=== PATIENT | female | born 1930 | race Caucasian/White ===

== ENCOUNTER → 2016-10-25 | Outpatient (CLI) | payer OTHER ==
[~2016-10-25] MED LIST: AMLODIPINE BESYL5 MG PO; CEFDINIR300 MG PO; FLORASTOR250 MG PO; FOSINOPRIL SODI40 MG PO; HYDROCHLOROTHIA25 MG PO; METOPROLOL TAR100 MG PO; TAMOXIFEN CITRA20 MG PO; TUMS500 MG PO; VITAMIN D31000 UNI2 PO
== END | disposition home or self-care (01) ==
LOC: CDC 11:15
DX: M65.342 Trigger finger, left ring finger (principal); M79.642 Pain in left hand
CPT/HCPCS: 93000

== ENCOUNTER 2016-11-19 17:17 | Inpatient (IN) | payer OTHER ==
[~2016-11-19] VITALS: Ht 165.1 cm; Wt 70.7 kg
[2016-11-19 17:48] LABS: EOSINOPHIL (%) 1.5 % (0-5); EOSINOPHIL COUNT 0.2 K/uL (0-0.3); HEMATOCRIT 28.9 % (36.0-46.0); IMMATURE GRANULOCYTE (%) 0.8 % (0.0-0.7); IMMATURE GRANULOCYTE COUNT 0.1 K/uL; INSTRUMENT ABS NEUTROPHIL CT 6.8 K/uL; LYMPHOCYTE COUNT 2.7 K/uL (1.0-2.8); MCH 31.8 PG (29.0-34.0); MCHC 33.6 G/DL (30.0-36.0); MEAN PLAT.VOLUME 9.6 uM^3 (9.5-12.4); MONOCYTE (%) 8.7 % (3-12); MONOCYTE COUNT 0.9 K/uL (0-0.8); NEUTROPHIL (%) 63.7 % (45-76); NEUTROPHIL COUNT 6.8 K/uL (1.8-6.4); PLATELET COUNT 281 K/uL (156-360); RBC DIS.WIDTH-CV 12.3 % (11.8-14.6); RBC DIS.WIDTH-SD 42.9 % (39-53); RED BLOOD COUNT 3.05 M/uL (3.80-5.20); WHITE BLOOD COUNT 10.7 K/uL (4.1-10.2)
[2016-11-19 17:49] LABS: MCV 94.8 FL (83-99)
[2016-11-19 17:57] LABS: CHLORIDE 94 mEq/L (99-109); POTASSIUM 3.9 mEq/L (3.7-5.4); SODIUM 127 mEq/L (136-147)
[2016-11-19 17:59] LABS: GLUCOSE 134 mg/dL (70-99)
[2016-11-19 18:00] LABS: ANION GAP 12 MEQ/L (2-14)
[2016-11-19 18:03] LABS: GFR ESTIMATE (CALCULATED) 27 mL/min/
[2016-11-19 18:04] LABS: UREA NITROGEN (BUN) 45 mg/dL (9-23)
[2016-11-19] MEDS ORDERED: FLEXERIL10 MG PO (20:00)
[2016-11-19] MEDS ORDERED: HYDROCODON-ACE1 EAC7 PO (20:00)
[2016-11-19] MEDS ORDERED: HYDROCHLOROTHIA25 MG PO (20:00)
[2016-11-19] MEDS ORDERED: SENNA PLUS TAB1 EACH PO (20:00)
[2016-11-19 20:11] LABS: ADD MIUA? YES; BILIRUBIN NEGATIVE; BLOOD SMALL; COLOR YELLOW ((YELLOW)); GLUCOSE (STRIP) NEGATIVE; KETONES NEGATIVE; LEUKOCYTES MODERATE; NITRITE POSITIVE; PROTEIN (STRIP) NEGATIVE; SPECIFIC GRAVITY 1.008 (1.000-1.030); UROBILINOGEN 0.2 MG/DL (0.2-1.0)
[2016-11-19 20:17] LABS: BACTERIA RARE /HPF; EPITHELIAL CELLS 1+ /HPF; MUCUS TRACE /LPF; RED BLOOD CELLS 0-5 /HPF (0-5); WHITE BLOOD CELLS 20-30 /HPF (0-5)
[2016-11-19 21:38] VITALS: BP 182/74
[2016-11-20 00:13] VITALS: BP 117/56
[2016-11-20 05:45] VITALS: BP 172/74
[2016-11-20 06:43] LABS: HEMATOCRIT 33.3 % (36.0-46.0); MCHC 33.9 G/DL (30.0-36.0); MCV 97.4 FL (83-99); MEAN PLAT.VOLUME 10.1 uM^3 (9.5-12.4); PLATELET COUNT 317 K/uL (156-360); RBC DIS.WIDTH-CV 12.5 % (11.8-14.6); RBC DIS.WIDTH-SD 44.7 % (39-53); RED BLOOD COUNT 3.42 M/uL (3.80-5.20); WHITE BLOOD COUNT 15.5 K/uL (4.1-10.2)
[2016-11-20 07:15] LABS: ANION GAP 10 MEQ/L (2-14); CHLORIDE 101 MEQ/L (99-109); GFR ESTIMATE (CALCULATED) 33 mL/min/; GLUCOSE 103 mg/dL (70-99); POTASSIUM 3.9 MEQ/L (3.7-5.4); SAMPLE HEMOLYSIS CHECK 1; SAMPLE ICTERIC CHECK 0; SAMPLE LIPEMIA CHECK 0; UREA NITROGEN (BUN) 36 mg/dL (9-23)
[2016-11-20 07:16] LABS: SODIUM 135 MEQ/L (136-147)
[2016-11-20 11:01] VITALS: BP 141/79
[2016-11-20 13:00] LABS: C DIFF TOXIN NEGATIVE (NEGATIVE)
[2016-11-20 13:13] LABS: PROBE CHECK PASS; SPECIMEN PROCESSING CONTROL PASS
[2016-11-20 16:10] VITALS: BP 134/62
[2016-11-20 20:34] VITALS: BP 140/66
[2016-11-21 06:20] LABS: EOSINOPHIL (%) 0.4 % (0-5); EOSINOPHIL COUNT 0.1 K/uL (0-0.3); HEMATOCRIT 32.1 % (36.0-46.0); IMMATURE GRANULOCYTE COUNT 0.2 K/uL; INSTRUMENT ABS NEUTROPHIL CT 11.5 K/uL; LYMPHOCYTE COUNT 2.6 K/uL (1.0-2.8); MCH 32.3 PG (29.0-34.0); MCHC 33.3 G/DL (30.0-36.0); MEAN PLAT.VOLUME 9.7 uM^3 (9.5-12.4); MONOCYTE (%) 7.4 % (3-12); MONOCYTE COUNT 1.2 K/uL (0-0.8); NEUTROPHIL (%) 74.2 % (45-76); NEUTROPHIL COUNT 11.5 K/uL (1.8-6.4); PLATELET COUNT 250 K/uL (156-360); RBC DIS.WIDTH-CV 12.4 % (11.8-14.6); RBC DIS.WIDTH-SD 44.7 % (39-53); RED BLOOD COUNT 3.31 M/uL (3.80-5.20); WHITE BLOOD COUNT 15.6 K/uL (4.1-10.2)
[2016-11-21 06:58] LABS: ANION GAP 15 MEQ/L (2-14); CHLORIDE 102 MEQ/L (99-109); GFR ESTIMATE (CALCULATED) 25 mL/min/; GLUCOSE 108 mg/dL (70-99); POTASSIUM 3.4 MEQ/L (3.7-5.4); SAMPLE HEMOLYSIS CHECK 0; SAMPLE ICTERIC CHECK 0; SAMPLE LIPEMIA CHECK 0; SODIUM 135 MEQ/L (136-147); UREA NITROGEN (BUN) 44 mg/dL (9-23)
[2016-11-21 08:42] VITALS: BP 169/73
[2016-11-21 13:42] LABS: ADD MIUA? YES; BILIRUBIN NEGATIVE; BLOOD MODERATE; COLOR YELLOW ((YELLOW)); GLUCOSE (STRIP) NEGATIVE; KETONES NEGATIVE; LEUKOCYTES LARGE; NITRITE NEGATIVE; PROTEIN (STRIP) 30; UROBILINOGEN 0.2 MG/DL (0.2-1.0)
[2016-11-21 14:06] LABS: BACTERIA RARE /HPF; CALCIUM OXALATE CRYSTALS 1+ /HPF; EPITHELIAL CELLS NONE SEEN /HPF; MUCUS NONE SEEN /LPF; RED BLOOD CELLS 0-5 /HPF (0-5); UCUL ADDED? YES; WHITE BLOOD CELLS TNTC /HPF (0-5); WHITE BLOOD CELLS CLUMP FEW /HPF (0-5)
[2016-11-21 16:02] VITALS: BP 137/61
[2016-11-21 19:55] VITALS: BP 182/81
[2016-11-21 23:31] VITALS: BP 149/65
[2016-11-22 06:57] LABS: EOSINOPHIL COUNT 0.1 K/uL (0-0.3); HEMATOCRIT 25.1 % (36.0-46.0); IMMATURE GRANULOCYTE (%) 0.7 % (0.0-0.7); IMMATURE GRANULOCYTE COUNT 0.1 K/uL; INSTRUMENT ABS NEUTROPHIL CT 6.4 K/uL; LYMPHOCYTE COUNT 2.9 K/uL (1.0-2.8); MCH 32.7 PG (29.0-34.0); MCHC 33.5 G/DL (30.0-36.0); MCV 97.7 FL (83-99); MONOCYTE (%) 11.4 % (3-12); MONOCYTE COUNT 1.2 K/uL (0-0.8); NEUTROPHIL (%) 59.7 % (45-76); NEUTROPHIL COUNT 6.4 K/uL (1.8-6.4); PLATELET COUNT 217 K/uL (156-360); RBC DIS.WIDTH-CV 12.6 % (11.8-14.6); RBC DIS.WIDTH-SD 45.2 % (39-53); WHITE BLOOD COUNT 10.7 K/uL (4.1-10.2)
[2016-11-22 07:04] LABS: ANION GAP 9 MEQ/L (2-14); CHLORIDE 107 MEQ/L (99-109); GFR ESTIMATE (CALCULATED) 29 mL/min/; GLUCOSE 86 mg/dL (70-99); POTASSIUM 4.3 MEQ/L (3.7-5.4); SAMPLE HEMOLYSIS CHECK 0; SAMPLE ICTERIC CHECK 0; SAMPLE LIPEMIA CHECK 0; SODIUM 136 MEQ/L (136-147); UREA NITROGEN (BUN) 38 mg/dL (9-23)
[2016-11-22 07:05] LABS: RED BLOOD COUNT 2.57 M/uL (3.80-5.20)
[2016-11-22 07:59] VITALS: BP 187/76
[2016-11-22 12:23] VITALS: BP 111/54
[2016-11-22 16:07] VITALS: BP 133/63
[2016-11-22 19:53] VITALS: BP 149/67
[2016-11-22 23:45] VITALS: BP 163/70
[2016-11-23] VITALS (8 sets, daily range): BP systolic 148–201; BP diastolic 64–94
[2016-11-23 06:38] LABS: HEMATOCRIT 26.1 % (36.0-46.0); MCH 32.1 PG (29.0-34.0); MCV 97.4 FL (83-99); MEAN PLAT.VOLUME 9.9 uM^3 (9.5-12.4); PLATELET COUNT 203 K/uL (156-360); RBC DIS.WIDTH-CV 12.5 % (11.8-14.6); RBC DIS.WIDTH-SD 44.3 % (39-53); RED BLOOD COUNT 2.68 M/uL (3.80-5.20); WHITE BLOOD COUNT 6.8 K/uL (4.1-10.2)
[2016-11-23 06:59] LABS: ANION GAP 9 MEQ/L (2-14); CHLORIDE 111 MEQ/L (99-109); GFR ESTIMATE (CALCULATED) 38 mL/min/; GLUCOSE 101 mg/dL (70-99); POTASSIUM 3.8 MEQ/L (3.7-5.4); SAMPLE HEMOLYSIS CHECK 0; SAMPLE ICTERIC CHECK 0; SAMPLE LIPEMIA CHECK 0; SODIUM 138 MEQ/L (136-147); UREA NITROGEN (BUN) 29 mg/dL (9-23)
[2016-11-24 04:35] VITALS: BP 191/81
[2016-11-24 07:30] VITALS: BP 164/87
[2016-11-24 12:21] VITALS: BP 169/88
[2016-11-24 16:30] VITALS: BP 177/70
[2016-11-24 20:14] VITALS: BP 145/67
[2016-11-24 23:08] VITALS: BP 178/74
[2016-11-25 04:04] VITALS: BP 118/58
[2016-11-25 07:34] VITALS: BP 176/73
[2016-11-25] MEDS ORDERED: APRESOLINE50 MG PO (12:09)
[2016-11-25] MEDS ORDERED: AMLODIPINE BESY10 MG PO (12:09)
[2016-11-25] MEDS ORDERED: CIPRO500 MG PO (12:10)
[2016-11-25] MEDS ORDERED: TRAMADOL HCL50 MG PO (12:15)
== END 2016-11-25 14:46 | disposition home health service (06) | DRG 543 ==
LOC: EME 17:17 → 3EAST 20:25 → EDOF 20:25 → 3EAST 21:16 → ENRESERV 11-23 17:03 → 3EAST 11-23 17:04
PROVIDERS: Emergency Medicine; Hospitalist; Internal Medicine; Physician Assistant
DX: M48.56XA Collapsed vertebra, not elsewhere classified, lumbar region, initial encounter for fracture (principal); N39.0 Urinary tract infection, site not specified; E87.1 Hypo-osmolality and hyponatremia; E87.2 Acidosis; N17.9 Acute kidney failure, unspecified; N12 Tubulo-interstitial nephritis, not specified as acute or chronic; F05 Delirium due to known physiological condition; M43.8X6 Other specified deforming dorsopathies, lumbar region; M48.06 Spinal stenosis, lumbar region; K59.00 Constipation, unspecified; H91.90 Unspecified hearing loss, unspecified ear; K21.9 Gastro-esophageal reflux disease without esophagitis; I12.9 Hypertensive chronic kidney disease with stage 1 through stage 4 chronic kidney disease, or unspecified chronic kidney disease; N18.3 Chronic kidney disease, stage 3 (moderate); R32 Unspecified urinary incontinence; E87.6 Hypokalemia; E86.0 Dehydration; Z85.828 Personal history of other malignant neoplasm of skin; Z85.3 Personal history of malignant neoplasm of breast; B96.20 Unspecified Escherichia coli [E. coli] as the cause of diseases classified elsewhere
CPT/HCPCS: 72148; 73721; 74020; 80048; 81003; 85025; 85027; 87077; 87086; 87186; 87493; 97530 GP; 99281; 99285; J0696; J1644; J7030; J7050

== ENCOUNTER 2017-11-07 04:20 | Inpatient (IN) | payer OTHER ==
[~2017-11-07] VITALS: Ht 147.3 cm; Wt 73.2 kg
[~2017-11-07 04:20] MED LIST changes: +AMLODIPINE BESY10 MG PO; +APRESOLINE50 MG PO; +CIPRO500 MG PO; +FLEXERIL10 MG PO; +HYDROCODON-ACE1 EAC7 PO; +SENNA PLUS TAB1 EACH PO; +TRAMADOL HCL50 MG PO
[2017-11-07 04:54] LABS: BASOPHIL (%) 0.4 % (0-1); BASOPHIL COUNT 0.1 K/uL (0-0.1); EOSINOPHIL (%) 0.9 % (0-5); EOSINOPHIL COUNT 0.1 K/uL (0-0.3); HEMOGLOBIN 11.2 G/DL (11.9-15.5); IMMATURE GRANULOCYTE (%) 1.2 % (0.0-0.7); LYMPHOCYTE (%) 11.5 % (15-42); LYMPHOCYTE COUNT 1.5 K/uL (1.0-2.8); MCH 30.1 PG (29.0-34.0); MCV 94.1 FL (83-99); MONOCYTE (%) 5.6 % (3-12); MONOCYTE COUNT 0.7 K/uL (0-0.8); NEUTROPHIL (%) 80.4 % (45-76); NEUTROPHIL COUNT 10.3 K/uL (1.8-6.4); PLATELET COUNT 215 K/uL (156-360); RBC DIS.WIDTH-CV 14.6 % (11.8-14.6); RBC DIS.WIDTH-SD 50.4 % (39-53); RED BLOOD COUNT 3.72 M/uL (3.80-5.20); WHITE BLOOD COUNT 12.8 K/uL (4.1-10.2)
[2017-11-07 05:07] LABS: AMYLASE 69 IU/L (1-118); CHLORIDE 114 mEq/L (99-109); POTASSIUM 4.1 mEq/L (3.7-5.4); SODIUM 146 mEq/L (136-147)
[2017-11-07 05:09] LABS: GLUCOSE 123 mg/dL (70-99)
[2017-11-07 05:09] LABS: INTER. NORMALIZED RATIO 1.2
[2017-11-07 05:12] LABS: CREATININE 1.9 mg/dL (0.6-1.3); GFR ESTIMATE (CALCULATED) 27 mL/min/; SERUM ETHYL ALCOHOL < 10 mg/dL
[2017-11-07 05:12] LABS: PTT 26.7 SEC (25-37)
[2017-11-07 05:13] LABS: UREA NITROGEN (BUN) 44 mg/dL (9-23)
[2017-11-07 05:15] LABS: LIPASE 22 U/L (1.0-51.0)
[2017-11-07 07:00] LABS: APPEARANCE SL.HAZY ((CLEAR)); BILIRUBIN NEGATIVE; BLOOD SMALL; COLOR YELLOW ((YELLOW)); GLUCOSE (STRIP) NEGATIVE; KETONES 5; LEUKOCYTES LARGE; NITRITE POSITIVE; PROTEIN (STRIP) 100; SPECIFIC GRAVITY 1.027 (1.000-1.030); UROBILINOGEN 0.2 MG/DL (0.2-1.0)
[2017-11-07 07:18] LABS: BACTERIA 2+ /HPF; EPITHELIAL CELLS RARE /HPF; MUCUS NONE SEEN /LPF; RED BLOOD CELLS 0-5 /HPF (0-5); UCUL ADDED? YES; WHITE BLOOD CELLS TNTC /HPF (0-5)
[2017-11-07 07:26] LABS: AMPHETAMINE NEGATIVE (500 ng/mL); BARBITURATES NEGATIVE (200 ng/mL); BENZODIAZEPINES NEGATIVE (150 ng/mL); BUPRENORPHINE NEGATIVE (10 ng/mL); COCAINE NEGATIVE (150 ng/mL); METHADONE NEGATIVE (200 ng/mL); METHAMPHETAMINE NEGATIVE (500 ng/mL); OPIATES (MORPHINE) NEGATIVE (100 ng/mL); OXYCODONE PRESUMPTIVE POSITIVE (100 ng/mL); PHENCYCLIDINE NEGATIVE (25 ng/mL); PROPOXYPHENE NEGATIVE (300 ng/mL); THC CANNABINOIDS NEGATIVE (50 ng/mL); TRICYCLIC ANTIDEPRESSANTS NEGATIVE (300 ng/mL)
[2017-11-07 09:31] LABS: TROP-I INTERPRETATION NEGATIVE; TROPONIN-I 0.03 ng/mL (0.0-0.30)
[2017-11-07] MEDS ORDERED: NORVASC5 MG PO (10:39)
[2017-11-07] MEDS ORDERED: LOPRESSOR100 M1 PO (10:39)
[2017-11-07] MEDS ORDERED: MONOPRIL40 MG PO (10:40)
[2017-11-07 14:54] LABS: TROP-I INTERPRETATION NEGATIVE; TROPONIN-I 0.03 ng/mL (0.0-0.30)
[2017-11-07 16:00] VITALS: BP 150/72
[2017-11-07 21:00] VITALS: BP 157/62
[2017-11-08] VITALS (7 sets, daily range): BP systolic 119–155; BP diastolic 59–82
[2017-11-08 01:18] LABS: TROP-I INTERPRETATION NEGATIVE; TROPONIN-I 0.02 ng/mL (0.0-0.30)
[2017-11-08 08:59] LABS: HEMATOCRIT 34.3 % (36.0-46.0); HEMOGLOBIN 10.8 G/DL (11.9-15.5); MCH 29.8 PG (29.0-34.0); MCHC 31.5 G/DL (30.0-36.0); MCV 94.8 FL (83-99); PLATELET COUNT 231 K/uL (156-360); RBC DIS.WIDTH-SD 51.8 % (39-53); RED BLOOD COUNT 3.62 M/uL (3.80-5.20); WHITE BLOOD COUNT 9.6 K/uL (4.1-10.2)
[2017-11-08 09:28] LABS: ALBUMIN 3.1 G/DL (3.2-4.8); ALKALINE PHOSPHATASE 50 IU/L (3-129); ALT (GPT) 17 IU/L (3-49); AST (GOT) 20 IU/L (2-34); CHLORIDE 108 MEQ/L (99-109); CREATININE 1.6 MG/DL (0.6-1.3); GFR ESTIMATE (CALCULATED) 33 mL/min/; GLUCOSE 120 mg/dL (70-99); SODIUM 142 MEQ/L (136-147); TOTAL BILIRUBIN 1.3 MG/DL (0.0-1.0); TOTAL PROTEIN 5.7 G/DL (6.4-8.3); UREA NITROGEN (BUN) 35 mg/dL (9-23)
[2017-11-08 09:31] LABS: TROP-I INTERPRETATION NEGATIVE; TROPONIN-I 0.02 ng/mL (0.0-0.30)
[2017-11-08 16:36] LABS: TROP-I INTERPRETATION NEGATIVE; TROPONIN-I 0.02 ng/mL (0.0-0.30)
[2017-11-09 01:35] LABS: TROP-I INTERPRETATION NEGATIVE; TROPONIN-I 0.02 ng/mL (0.0-0.30)
[2017-11-09 03:37] VITALS: BP 139/46
[2017-11-09 07:20] VITALS: BP 152/71
[2017-11-09 09:37] LABS: TROP-I INTERPRETATION NEGATIVE; TROPONIN-I < 0.01 ng/mL (0.0-0.30)
[2017-11-09 11:57] VITALS: BP 109/57
[2017-11-09 15:23] VITALS: BP 146/98
[2017-11-09 16:40] LABS: TROP-I INTERPRETATION NEGATIVE; TROPONIN-I < 0.01 ng/mL (0.0-0.30)
[2017-11-09 19:02] VITALS: BP 132/73
[2017-11-09 23:59] VITALS: BP 141/60
[2017-11-10 04:40] VITALS: BP 140/67
[2017-11-10 07:43] VITALS: BP 132/62
[2017-11-10 11:37] VITALS: BP 131/89
[2017-11-10 15:48] VITALS: BP 143/64
[2017-11-10 19:11] VITALS: BP 158/70
[2017-11-10 23:16] VITALS: BP 148/69
[2017-11-11 03:22] VITALS: BP 129/72
[2017-11-11 07:10] LABS: HEMATOCRIT 29.5 % (36.0-46.0); MCH 29.3 PG (29.0-34.0); MCHC 30.5 G/DL (30.0-36.0); MCV 96.1 FL (83-99); PLATELET COUNT 221 K/uL (156-360); RBC DIS.WIDTH-CV 15.8 % (11.8-14.6); RBC DIS.WIDTH-SD 55.4 % (39-53); RED BLOOD COUNT 3.07 M/uL (3.80-5.20)
[2017-11-11 07:24] VITALS: BP 144/80
[2017-11-11 07:37] LABS: CHLORIDE 112 MEQ/L (99-109); CREATININE 1.4 MG/DL (0.6-1.3); GFR ESTIMATE (CALCULATED) 38 mL/min/; GLUCOSE 137 mg/dL (70-99); POTASSIUM 4.4 MEQ/L (3.7-5.4); SODIUM 139 MEQ/L (136-147); UREA NITROGEN (BUN) 33 mg/dL (9-23)
[2017-11-11 12:06] VITALS: BP 104/58
[2017-11-11 15:08] VITALS: BP 159/83
[2017-11-11 19:48] VITALS: BP 134/66
[2017-11-12] VITALS (7 sets, daily range): BP systolic 145–168; BP diastolic 65–81
[2017-11-13 04:19] VITALS: BP 141/66
[2017-11-13 06:23] LABS: HEMATOCRIT 31.9 % (36.0-46.0); HEMOGLOBIN 9.6 G/DL (11.9-15.5); MCH 29.4 PG (29.0-34.0); MCHC 30.1 G/DL (30.0-36.0); MCV 97.9 FL (83-99); PLATELET COUNT 255 K/uL (156-360); RBC DIS.WIDTH-CV 16.2 % (11.8-14.6); RBC DIS.WIDTH-SD 56.6 % (39-53); RED BLOOD COUNT 3.26 M/uL (3.80-5.20); WHITE BLOOD COUNT 9.2 K/uL (4.1-10.2)
[2017-11-13 06:50] LABS: CHLORIDE 109 MEQ/L (99-109); CREATININE 1.3 MG/DL (0.6-1.3); GFR ESTIMATE (CALCULATED) 41 mL/min/; GLUCOSE 117 mg/dL (70-99); POTASSIUM 4.7 MEQ/L (3.7-5.4); SODIUM 139 MEQ/L (136-147); UREA NITROGEN (BUN) 27 mg/dL (9-23)
[2017-11-13 08:09] VITALS: BP 186/86
[2017-11-13 11:48] VITALS: BP 178/70
[2017-11-13] MEDS ORDERED: DOCUSATE SODIU100 MG PO (11:48)
[2017-11-13] MEDS ORDERED: POLYETHYLENE GL17 GM PO (11:49)
[2017-11-13] MEDS ORDERED: TYLENOL REGULA325 MG PO (11:50)
[2017-11-13] MEDS ORDERED: NORVASC5 MG PO (11:50)
[2017-11-13] MEDS ORDERED: OXYCODONE HCL5 MG PO ×2 (11:51→14:18)
[2017-11-13] MEDS ORDERED: CEFTIN250 MG PO (11:51)
== END 2017-11-13 16:25 | DRG 183 ==
LOC: EME → EDBD 04:20 → EME 04:20 → TRA 04:20 → 3EAST 08:31 → 4EAST 08:31 → EDOF 08:31 → ENRESERV 08:51 → EDOF 11:18 → 4EAST 15:17 → ENRESERV 11-09 15:42 → 3EAST 11-09 18:12
PROVIDERS: Emergency Medicine; Family Medicine; Surgery
PROC: 0HQ0XZZ Repair Scalp Skin, External Approach (ICD-10-PCS; principal; 2017-11-07)
DX: S22.42XA Multiple fractures of ribs, left side, initial encounter for closed fracture (principal); S27.2XXA Traumatic hemopneumothorax, initial encounter; S06.0X9A Concussion with loss of consciousness of unspecified duration, initial encounter; R40.2413 Glasgow coma scale score 13-15, at hospital admission; S01.01XA Laceration without foreign body of scalp, initial encounter; S90.31XA Contusion of right foot, initial encounter; W10.9XXA Fall (on) (from) unspecified stairs and steps, initial encounter; Y92.009 Unspecified place in unspecified non-institutional (private) residence as the place of occurrence of the external cause; I48.91 Unspecified atrial fibrillation; N30.91 Cystitis, unspecified with hematuria; B96.89 Other specified bacterial agents as the cause of diseases classified elsewhere; I16.0 Hypertensive urgency; I13.0 Hypertensive heart and chronic kidney disease with heart failure and stage 1 through stage 4 chronic kidney disease, or unspecified chronic kidney disease; I50.9 Heart failure, unspecified; N18.3 Chronic kidney disease, stage 3 (moderate); M80.88XA Other osteoporosis with current pathological fracture, vertebra(e), initial encounter for fracture; I25.10 Atherosclerotic heart disease of native coronary artery without angina pectoris; F05 Delirium due to known physiological condition; R13.10 Dysphagia, unspecified; D64.9 Anemia, unspecified; R09.02 Hypoxemia; G30.9 Alzheimer's disease, unspecified; F02.80 Dementia in other diseases classified elsewhere, unspecified severity, without behavioral disturbance, psychotic disturbance, mood disturbance, and anxiety; K59.00 Constipation, unspecified; M48.061 Spinal stenosis, lumbar region without neurogenic claudication; M46.92 Unspecified inflammatory spondylopathy, cervical region; K21.9 Gastro-esophageal reflux disease without esophagitis; H91.90 Unspecified hearing loss, unspecified ear; K80.20 Calculus of gallbladder without cholecystitis without obstruction; I70.0 Atherosclerosis of aorta; R26.81 Unsteadiness on feet; R29.6 Repeated falls; G89.29 Other chronic pain; F32.9 Major depressive disorder, single episode, unspecified; I25.2 Old myocardial infarction; Z91.14 Patient's other noncompliance with medication regimen; Z23 Encounter for immunization; Z91.81 History of falling; Z79.891 Long term (current) use of opiate analgesic; Z85.828 Personal history of other malignant neoplasm of skin; Z86.73 Personal history of transient ischemic attack (TIA), and cerebral infarction without residual deficits; Z90.710 Acquired absence of both cervix and uterus
CPT/HCPCS: 70450; 71045; 71260; 72125; 72129; 72132; 73630; 74177; 80048; 80053; 81003; 82150; 83690; 83880; 84484; 85025; 85027; 85610; 85730; 86850; 86900; 86901; 87077; 87086; 87186; 92610 GN; 93005; 94640; 94799; 97530 GP; 99281; 99285; A6214; G0480; J0360; J0690; J0696; J1644; J3010; J7030

== ENCOUNTER 2017-12-10 18:17 | Emergency (ER) | payer OTHER ==
[~2017-12-10] VITALS: Ht 170.2 cm; Wt 62.3 kg
[~2017-12-10 18:17] MED LIST changes: +CEFTIN250 MG PO; +DOCUSATE SODIU100 MG PO; +LOPRESSOR100 M1 PO; +MONOPRIL40 MG PO; +NORVASC5 MG PO; +OXYCODONE HCL5 MG PO; +POLYETHYLENE GL17 GM PO; +TYLENOL REGULA325 MG PO
[2017-12-10 20:05] LABS: BASOPHIL (%) 0.4 % (0-1); EOSINOPHIL COUNT 0.1 K/uL (0-0.3); HEMATOCRIT 32.6 % (36.0-46.0); HEMOGLOBIN 10.2 G/DL (11.9-15.5); IMMATURE GRANULOCYTE (%) 0.5 % (0.0-0.7); LYMPHOCYTE (%) 18.1 % (15-42); LYMPHOCYTE COUNT 1.9 K/uL (1.0-2.8); MCH 29.7 PG (29.0-34.0); MCHC 31.3 G/DL (30.0-36.0); MONOCYTE (%) 8.1 % (3-12); MONOCYTE COUNT 0.8 K/uL (0-0.8); NEUTROPHIL (%) 71.9 % (45-76); NEUTROPHIL COUNT 7.4 K/uL (1.8-6.4); PLATELET COUNT 235 K/uL (156-360); RBC DIS.WIDTH-CV 15.9 % (11.8-14.6); RBC DIS.WIDTH-SD 55.5 % (39-53); RED BLOOD COUNT 3.43 M/uL (3.80-5.20); WHITE BLOOD COUNT 10.3 K/uL (4.1-10.2)
[2017-12-10 20:16] LABS: INTER. NORMALIZED RATIO 1.1
[2017-12-10 20:18] LABS: CHLORIDE 104 mEq/L (99-109); POTASSIUM 3.8 mEq/L (3.7-5.4); SODIUM 144 mEq/L (136-147)
[2017-12-10 20:19] LABS: GLUCOSE 105 mg/dL (70-99)
[2017-12-10 20:23] LABS: CREATININE 1.2 mg/dL (0.6-1.3); GFR ESTIMATE (CALCULATED) 45 mL/min/
[2017-12-10 20:24] LABS: UREA NITROGEN (BUN) 34 mg/dL (9-23)
[2017-12-11 01:07] VITALS: BP 148/77
== END 2017-12-11 01:10 ==
LOC: EME 18:17
PROVIDERS: Emergency Medicine
DX: S09.90XA Unspecified injury of head, initial encounter (principal); S05.12XA Contusion of eyeball and orbital tissues, left eye, initial encounter; W18.30XA Fall on same level, unspecified, initial encounter; Y92.129 Unspecified place in nursing home as the place of occurrence of the external cause; F03.90 Unspecified dementia, unspecified severity, without behavioral disturbance, psychotic disturbance, mood disturbance, and anxiety; K21.9 Gastro-esophageal reflux disease without esophagitis; I12.9 Hypertensive chronic kidney disease with stage 1 through stage 4 chronic kidney disease, or unspecified chronic kidney disease; N18.9 Chronic kidney disease, unspecified; I25.2 Old myocardial infarction; F41.9 Anxiety disorder, unspecified; F32.9 Major depressive disorder, single episode, unspecified; Z90.12 Acquired absence of left breast and nipple
CPT/HCPCS: 70450; 70486; 72125; 80048; 85025; 85610; 85730; 93005; 99281; 99285